=== PATIENT | male | born 2000 | race Caucasian/White ===

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

== ENCOUNTER 2022-01-16 10:15 | Emergency (ER) | payer MEDICAID, SELFPAY ==
[2022-01-16 10:32] VITALS: BP 114/57; PULSE 78; RESP 16; TEMP 36.7; O2SAT 98
[2022-01-16 10:37] VITALS: RESP 20
--- NOTE | 2022-01-16 10:41 | ED.GENADUL_ITS ---
Discharge Plan Disposition Patient Disposition: HOME Condition: Improving Discharge Details Clinical Impression: Exudative pharyngitis Primary Care Provider: Umu Baca ED Provider: Fuad Amin Home Meds and New Rx's Prescriptions: New penicillin V potassium 500 mg tablet 500 mg PO TID 9 Days Qty: 27 0RF Continued escitalopram oxalate [Lexapro] 20 mg tablet 20 mg PO HS Qty: 30 2RF Discharge Instructions Instructions: Pharyngitis (ED) Additional Instructions: Small, frequent sips of fluids and/or popsicles to maintain good hydration. Tylenol and/or ibuprofen as needed for pain. Take antibiotics as prescribed. Return to ER for any acute concerns. Stand Alone Forms: Work Release Medical Decision Making This is a 21-year-old male with 3 days of sore throat and minimal other symptoms. His exam is consistent with exudative pharyngitis. He had a negative COVID test at home. We will place him on a course of penicillin. He understands home care and return precautions for reevaluation. HPI General Mode of arrival: ambulatory . Date/Time Provider Initiated Documentation: 01/16/22 10:17 . Limitations to Documentation: no limitations . Information obtained by: patient . History of Present Illness 21 year old M presents to the emergency department with the chief complaint of Sore throat, described as moderate, Quality is described as dull and constant, and is localized to the face and mouth. Patient reports no radiation. Patient started experiencing this hour(s) and it has been constant. No relieving factors improve symptom(s), No exacerbating factors reported . Patient notes other (Sinus); denies cough, fever/chills, headaches and loss of appetite. Patient did receive the following treatments prior to arrival, none Related Data Home Medications Medication Instructions Recorded Confirmed escitalopram oxalate 20 mg tablet 20 mg PO HS #30 tabs 22 01/16/22 (Lexapro) penicillin V potassium 500 mg 500 mg PO TID 9 days #27 tabs 01/16/22 tablet Previous Rx's Medication Instructions Recorded escitalopram oxalate 20 mg tablet 20 mg PO HS #30 tabs 11/15/21 (Lexapro) penicillin V potassium 500 mg 500 mg PO TID 9 days #27 tabs 01/16/22 tablet Allergies Allergy/AdvReac Type Severity Reaction Status Date / Time No Known Drug Allergies Allergy Verified 01/16/22 10:36 General Stated Complaint: GenMedical MADHAVI: 4 Review of Systems Narrative: Bloody tinged yellow sinus drainage, minimal dry cough, no significant fever, no known sick contacts. Denies change in taste or smell. 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 Suicidal ideation Without specific timing or plan as of spring 2020- suicidal ideation improving over the remainder of the year with suicidal ideation being less intense and frequent Surgical History History of abdominal surgery (~04/04/21) patent urachal repair Tooth extraction had caps done under anesthesia Family History Mother Psoriasis Seizures Father Healthy adult Other Alcohol abuse MGF- recovered 26 years Essential hypertension MGM, MGF Personal history of malignant neoplasm MGGM-breast, MGGF-pituitary/adrenal Heart disease MGF Hyperlipidemia MGGM Mental disorder M great uncle Myocardial infarction MGF Social History Smoking/Tobacco Use Status: Never Second Hand Exposure: Yes Smoking risk assessment performed?: Yes Alcohol Intake: current Alcohol Intake frequency: a few times a month Drug use: Occasionally Substance use type: marijuana Details: Couple x a week but use is decreasing over time Adopted: No Foster care: No Household members: other Details: Recently moved into apartment with two friends in [place] Number of Children: 0 Education Level: high school 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 Pleasant, well groomed, interactive. HEAD: Normocephalic, atraumatic ENT: Mucous membranes moist, oropharynx erythematous tonsillar pillars with white exudate. No asymmetry or swelling, tympanic membranes clear bilaterally, External ear exam unremarkable EYES: PERRL, EOMI NECK: Full ROM, no SONA, no menigismus CHEST/RESP: Nontender, clear to auscultation bilateral, no wheeze/rhonchi/rales CARDIOVASCULAR: RRR, no murmur, rub vasyl. 2+ Rad pulse bilateral ABDOMEN: Soft, nontender, no mass. +Bowel sounds EXT: Full ROM, no edema, no rash Neuro: Grossly normal neurologic exam, conversant, interactive. Psych: Speech fluent, thoughts congruent, affect normal Course Vital Signs Vital signs: Vital Signs Temperature 36.7 C 01/16/22 10:32 Pulse 78 01/16/22 10:32 Respiratory Rate 16 01/16/22 10:32 Blood Pressure 114/57 L 01/16/22 10:32 Pulse Oximetry 98 01/16/22 10:32 Temperature 36.7 C 01/16/22 10:32 Temperature Source Temporal Artery Scan 01/16/22 10:32 Pulse 78 01/16/22 10:32 Respiratory Rate 20 01/16/22 10:37 Respiratory Effort 01/16/22 10:37 Respiratory Depth Normal 01/16/22 10:37 Respiratory Pattern Normal 01/16/22 10:37 Blood Pressure 114/57 L 01/16/22 10:32 Blood Pressure Position Sitting 01/16/22 10:32 Pulse Oximetry 98 01/16/22 10:32 Oxygen Delivery Method Room Air 01/16/22 10:32 Oxygen Flow Rate 0 01/16/22 10:32 Pain Level 6 01/16/22 10:32
[2022-01-16] MEDS: Penicillin V POTASSIUM 500 MG TAB, 4 TABS/BTL PO (11:02)
== END 2022-01-16 11:03 | disposition home or self-care (01) ==
PROVIDERS: Emergency Provider Emergency Medicine
DX: J02.9 Acute pharyngitis, unspecified (principal)
CPT/HCPCS: 99283

== ENCOUNTER 2022-05-13 06:16 | Emergency (ER) | payer MEDICAID, SELFPAY ==
[2022-05-13 06:23] VITALS: BP 133/64; PULSE 113; RESP 24; TEMP 36.6; O2SAT 95
--- NOTE | 2022-05-13 06:51 | ED.GENADUL_ITS ---
Discharge Plan Disposition Patient Disposition: HOME Condition: Stable Discharge Details Clinical Impression: Exudative pharyngitis Primary Care Provider: Unknown,Unknown ED Provider: Janice Mortensen Home Meds and New Rx's Prescriptions: Continued escitalopram oxalate [Lexapro] 20 mg tablet 20 mg PO HS Qty: 30 2RF Discharge Instructions Instructions: Pharyngitis (ED) Additional Instructions: Your rapid strep test today is negative. Your symptoms could be secondary to another type of strep throat or mononucleosis which is a viral throat infection. You were given an antibiotic injection today for treatment of another possible type of strep throat. A throat culture has been ordered and will take several days to obtain a result. A blood test was drawn today to test for mononucleosis and you will be notified if the result is positive. Drink plenty of fluids and get plenty of rest. Alternate tylenol and motrin as needed and directed for pain. Follow-up with your primary care doctor in 1 week. Return to the emergency department with any worsening or new concerning symptoms. Stand Alone Forms: Work Release Discharge Data Discharge Date/Time-TO BE ENTERED AT DEPARTURE: 05/13/22 07:41 Discharge Physician: Janice Mortensen Medical Decision Making 22-year-old male presents with sore throat for the past 2 days. Also admits to fatigue and generalized malaise. Heart rate tachycardic to the 110s. He is afebrile and able to speak in full sentences. He has observable pain with swallowing. He has posterior pharyngeal erythema, edema with tonsillar exudates. There is no significant lymphadenopathy, drooling, trismus or submandibular swelling. Rapid strep negative. Discussed with patient that differential diagnosis includes another form of strep pharyngitis including strep B strep C strep G or mononucleosis. We will give a dose of Motrin and Decadron, obtain mono screening. Throat culture sent. Patient offered prescription for antibiotics for possible strep versus Bicillin injection. Patient would rather have the injection. Advised to increase fluids, rest, alternate Tylenol and Motrin. Advised to follow up with the primary care doctor for re-evaluation. Usual and customary return precautions given prior to discharge. Medical Records Medical records reviewed: Yes I reviewed the patient's medical records. HPI General Mode of arrival: ambulatory . Date/Time Provider Initiated Documentation: 05/13/22 06:19 . Limitations to Documentation: no limitations . Information obtained by: patient . HPI Narrative: Patient is a 22-year-old male presents with sore throat for the past 2 days. Patient states he has pain with swallowing. He denies any known fever, nasal congestion, ear pain, cough or difficulty breathing. He states he has had strep throat in the past and states this feels similar. He also admits to fatigue and generalized malaise. Related Data Home Medications Medication Instructions Recorded Confirmed escitalopram oxalate 20 mg tablet 20 mg PO HS #30 tabs 02/23/22 (Lexapro) Previous Rx's Medication Instructions Recorded escitalopram oxalate 20 mg tablet 20 mg PO HS #30 tabs 02/23/22 (Lexapro) Allergies Allergy/AdvReac Type Severity Reaction Status Date / Time No Known Drug Allergies Allergy Verified 01/16/22 10:36 General Stated Complaint: Sorethroat MADHAVI: 3 Review of Systems All systems reviewed & are unremarkable except as noted in HPI and below Constitutional Constitutional: Reports as per HPI, Denies chills, Reports fatigue, Denies fever(s) and Reports malaise Eyes Eyes: Denies blurry vision ENT Ears, Nose, Mouth, and Throat: Denies dizziness, Reports sore throat and Denies throat swelling Cardiovascular Cardiovascular: Denies chest pain and Denies dyspnea Respiratory Respiratory: Denies cough and Denies dyspnea Gastrointestinal Gastrointestinal: Denies abdominal pain, Denies diarrhea and Denies vomiting Genitourinary Genitourinary: Denies hematuria and Denies dysuria Musculoskeletal Musculoskeletal: Denies back pain and Denies numbness Integumentary/Breasts Skin/Breast: Denies lesions and Denies rash Neurologic Neurologic: Denies dizziness, Denies localized weakness and Denies numbness Endocrine Endocrine: Reports fatigue Allergic/Immunologic Allergic/Immunologic: Denies throat swelling [facility] All Active Problems (Updated 05/13/22 @ 07:10 by Janice Mortensen DO) Exudative pharyngitis (Acute) Depression (Chronic) Lexapro 20 mg as of 12/12/20; has counseling services with Demi at [facility] and only intermittently takes his Lexapro (10/23/21) Substance use (Chronic) Ongoing use of THC; charged with a DUI over 2020- was placed in diversion program; 6 months of suspended license and fines ; denies use of alcohol since that time Medical History 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 Suicidal ideation Without specific timing or plan as of spring 2020- suicidal ideation improving over the remainder of the year with suicidal ideation being less intense and frequent Surgical History History of abdominal surgery (~04/04/21) patent urachal repair Tooth extraction had caps done under anesthesia Family History Mother Psoriasis Seizures Father Healthy adult Other Alcohol abuse MGF- recovered 26 years Essential hypertension MGM, MGF Personal history of malignant neoplasm MGGM-breast, MGGF-pituitary/adrenal Heart disease MGF Hyperlipidemia MGGM Mental disorder M great uncle Myocardial infarction MGF Social History Smoking/Tobacco Use Status: Never Second Hand Exposure: Yes Smoking risk assessment performed?: Yes Alcohol Intake: current Alcohol Intake frequency: a few times a month Drug use: Occasionally Substance use type: marijuana Details: Couple x a week but use is decreasing over time Adopted: No Foster care: No Household members: other Details: Recently moved into apartment with two friends in [place] Number of Children: 0 Education Level: high school 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 Exam Const General: cooperative, healthy appearing and no acute distress Orientation: alert, awake and oriented x3 HENMT Head: normal to inspection Ears: hearing grossly normal bilaterally, external ears normal and TM's normal bilaterally Mouth: oral mucosae normal, no drooling and no trismus Teeth and gingiva: dentition normal Throat: no peritonsillar masses and posterior oropharynx abnormal edema, erythema and exudates Eyes General: appearance normal, both eyes and all related structures Neck Neck: normal visual inspection, no lymphadenopathy, no meningeal signs, trachea midline, supple, no anterior neck swelling and No submandibular swelling Resp Effort & Inspection: normal respiratory effort and able to speak in complete sentences Auscultation: clear to auscultation bilaterally Cardio Rate: regular rate Rhythm: regular rhythm GI Palpation: soft, not firm, no guarding, no masses, not rigid and nontender Skin General skin exam: no rashes or lesions noted Neuro General: patient alert, patient awake and patient oriented x3 Motor: muscle tone normal throughout Extrem General: normal to inspection and full ROM Psych Appearance: grossly normal Affect: normal affect Course Vital Signs Vital signs: Vital Signs Temperature 97.8 F 05/13/22 06:23 Pulse 113 H 05/13/22 06:23 Respiratory Rate 24 05/13/22 06:23 Blood Pressure 133/64 05/13/22 06:23 Pulse Oximetry 95 05/13/22 06:23 Temperature 97.8 F 05/13/22 06:23 Temperature Source Oral 05/13/22 06:23 Pulse 113 H 05/13/22 06:23 Respiratory Rate 24 05/13/22 06:23 Respiratory Effort Non-Labored 05/13/22 06:27 Blood Pressure 133/64 05/13/22 06:23 Pulse Oximetry 95 05/13/22 06:23 Pain Level 6 05/13/22 06:23 Lab/Test Results Lab/Test Results: POC Strep Test-JUAN ANTONIO(Rapid) Start: 05/13/22 06:27 Freq: .Rapid Strep Test Status: Active Protocol: Document 05/13/22 06:50 NAOMIE (Rec: 05/13/22 06:50 NAOMIE [id number]) Strep test-JUAN ANTONIO(Rapid)-POC POC-Strep test-JUAN ANTONIO (Rapid) Negative POC-Strep test-JUAN ANTONIO (Rapid) Negative
[2022-05-13] MEDS: Dexamethasone 10 MG/ML VIAL PO (07:12)
[2022-05-13] MEDS: Ibuprofen 600 MG TAB PO (07:12)
[2022-05-13 07:40] VITALS: BP 133/64; PULSE 113; RESP 24; TEMP 36.6; O2SAT 95
[2022-05-13 08:10] LABS: Mono Screening Negative (Negative)
== END 2022-05-13 07:41 | disposition home or self-care (01) ==
PROVIDERS: Emergency Provider Physician Assistant
DX: J02.9 Acute pharyngitis, unspecified (principal); R53.83 Other fatigue; R53.81 Other malaise; R00.0 Tachycardia, unspecified; Z77.22 Contact with and (suspected) exposure to environmental tobacco smoke (acute) (chronic)
CPT/HCPCS: 87880; 96372; 99284; 86308; 87081; J0561; J1100

== ENCOUNTER 2022-05-16 15:15 | Emergency (ER) | payer MEDICAID, SELFPAY ==
[2022-05-16 15:25] VITALS: BP 133/71; PULSE 98; RESP 18; TEMP 37; O2SAT 97
--- NOTE | 2022-05-16 16:55 | W.ED.GENAD ---
Discharge Plan Disposition Patient Disposition: HOME Condition: Stable Discharge Details Clinical Impression: URI (upper respiratory infection) Primary Care Provider: Unknown,Unknown ED Provider: Sravan Tam Home Meds and New Rx's Prescriptions: New prednisone 20 mg tablet 40 mg PO DAILY Qty: 8 0RF Continued escitalopram oxalate [Lexapro] 20 mg tablet 20 mg PO HS Qty: 30 2RF Discharge Instructions Instructions: Upper Respiratory Infection (ED) Additional Instructions: Please stay well-hydrated and continue to take [id number] medication as it matches symptoms. For this evening you may take ibuprofen and then start your prednisone first thing tomorrow morning and take as prescribed. If you develop any new or significant worsening of symptoms feel free to return the emergency department for reassessment otherwise follow-up with your primary care provider for recheck if you are not improving in the next week. Referrals: Primary Care Provider [Outside] - 1 week Discharge Data Discharge Date/Time-TO BE ENTERED AT DEPARTURE: 05/16/22 17:08 Medical Decision Making Patient presenting to the emergency department for chief complaint of continued sore throat and now having nasal congestion and cough. Patient does state he felt better after the steroids he received during his emergency department visit a couple days ago but now has continued symptoms. Exam consistent with URI with tonsillar erythema, and audible nasal congestion otherwise unremarkable benign exam.. 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 Pt non toxic and stable. Patient was previously negative for strep and strep culture was negative, patient was also negative for mono. Patient denies any COVID testing so we will perform send out COVID testing. Patient already received Bicillin so I do not feel that antibiotics are needed. Patient offered repeat dose of Decadron versus daily prednisone. After discussion of risk versus benefit of each patient stated preference for prednisone. This was prescribed to patient and discussed with patient return and follow-up precautions. After discussion of diagnosis and plan of care patient has no further needs, questions, or concerns and states clear understanding to return to the emergency department for any worsening symptoms. This documentation was generated using [employer] system, please disregard any oddities of phrase or misspellings. HPI General Mode of arrival: ambulatory. Date/Time Provider Initiated Documentation: 05/16/22 15:26. Limitations to Documentation: no limitations. Information obtained by: patient, RN notes reviewed and old records reviewed. History of Present Illness 22 year old M presents to the emergency department with the chief complaint of Sore throat, nasal congestion, cough, described as moderate, with intensity rated at 6. Quality is described as aching, and is localized to the face and mouth. Patient reports no radiation. Patient started experiencing this day(s) (4) and it has been constant. Medication improves symptom(s), (Steroids helped) No exacerbating factors reported . Patient notes cough; denies fever/chills. Patient did receive the following treatments prior to arrival, none Related Data Home Medications Medication Instructions Recorded Confirmed escitalopram oxalate 20 mg tablet 20 mg PO HS #30 tabs 02/23/22 05/16/22 (Lexapro) prednisone 20 mg tablet 40 mg PO DAILY #8 tabs 05/16/22 Previous Rx's Medication Instructions Recorded escitalopram oxalate 20 mg tablet 20 mg PO HS #30 tabs 02/23/22 (Lexapro) prednisone 20 mg tablet 40 mg PO DAILY #8 tabs 05/16/22 Allergies Allergy/AdvReac Type Severity Reaction Status Date / Time No Known Drug Allergies Allergy Verified 05/16/22 15:36 General Stated Complaint: GenMedical MADHAVI: 4 Review of Systems Constitutional Constitutional: Reports chills, Reports fever(s), Denies headache(s) and Reports malaise ENT Ears, Nose, Mouth, and Throat: Denies change in voice, Denies dysphagia, Denies otalgia, Denies headache(s), Denies hoarseness, Denies lip swelling, Denies mouth lesions, Reports nasal congestion, Reports odynophagia, Reports sinus pressure, Reports sore throat, Denies throat swelling and Denies tongue swelling Cardiovascular Cardiovascular: Denies chest pain Respiratory Respiratory: Denies chest congestion and Reports cough Gastrointestinal Gastrointestinal: Denies dysphagia and Reports odynophagia Integumentary/Breasts Skin/Breast: Denies rash Neurologic Neurologic: Denies headache(s) Allergic/Immunologic Allergic/Immunologic: Denies lip swelling, Denies throat swelling and Denies tongue swelling PFSH All Active Problems Exudative pharyngitis (Acute) URI (upper respiratory infection) (Acute) Depression (Chronic) Lexapro 20 mg as of 12/12/20; has counseling services with Demi at [facility]- no counseling and only intermittently takes his Lexapro (10/23/21) Substance use (Chronic) Ongoing use of THC; charged with a DUI over 2020- was placed in diversion program; 6 months of suspended license and fines ; denies use of alcohol since that time Medical History 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 Suicidal ideation Without specific timing or plan as of spring 2020- suicidal ideation improving over the remainder of the year with suicidal ideation being less intense and frequent Surgical History History of abdominal surgery (~04/04/21) patent urachal repair Tooth extraction had caps done under anesthesia Family History Mother Psoriasis Seizures Father Healthy adult Other Alcohol abuse MGF- recovered 26 years Essential hypertension MGM, MGF Personal history of malignant neoplasm MGGM-breast, MGGF-pituitary/adrenal Heart disease MGF Hyperlipidemia MGGM Mental disorder M great uncle Myocardial infarction MGF Social History Smoking/Tobacco Use Status: Current every day Tobacco Type: cigarettes Second Hand Exposure: Yes Smoking risk assessment performed?: Yes Alcohol Intake: current Alcohol Intake frequency: a few times a month Drug use: Occasionally Substance use type: marijuana Details: Couple x a week but use is decreasing over time Adopted: No Foster care: No Household members: other Details: Recently moved into apartment with two friends in [place] Number of Children: 0 Education Level: high school 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 Exam Const General: cooperative, healthy appearing, comfortable, no acute distress and not ill appearing Orientation: alert, awake and oriented x3 HENMT Head: normal to inspection and normocephalic Ears: hearing grossly normal bilaterally, external ears normal, TM's normal bilaterally and mastoids normal General nose exam: external nose normal and nares normal Face and sinus: normal facial exam Mouth: oral mucosae normal, lip normal, tongue normal, no audible dysphonia, no drooling and no trismus Throat: uvula midline, abnormal tonsil bilaterally erythema; no exudates and no hypertrophy and no peritonsillar masses Neck Neck: normal visual inspection, full ROM, no lymphadenopathy and no meningeal signs Resp Effort & Inspection: normal respiratory effort, able to speak in complete sentences and no stridor Auscultation: clear to auscultation bilaterally Cardio Rate: regular rate Rhythm: regular rhythm Heart Sounds: S1 normal and S2 normal Skin General skin exam: no rashes or lesions noted Course Vital Signs Vital signs: Vital Signs Temperature 37.0 C 05/16/22 15:25 Pulse 98 H 05/16/22 15:25 Respiratory Rate 18 05/16/22 15:25 Blood Pressure 133/71 05/16/22 15:25 Pulse Oximetry 97 05/16/22 15:25 Temperature 37.0 C 05/16/22 15:25 Temperature Source Oral 05/16/22 15:25 Pulse 98 H 05/16/22 15:25 Respiratory Rate 18 05/16/22 15:25 Respiratory Effort Non-Labored 05/16/22 15:35 Blood Pressure 133/71 05/16/22 15:25 Blood Pressure Position Sitting 05/16/22 15:25 Pulse Oximetry 97 05/16/22 15:25 Oxygen Delivery Method Room Air 05/16/22 15:25 Oxygen Flow Rate 0 05/16/22 15:25 Pain Level 6 05/16/22 15:25 Lab/Test Results Lab/Test Results: 05/16/22 15:45 Pharynx Group A Streptococcus Culture - Pending POC Strep Test-JUAN ANTONIO(Rapid) Start: 05/16/22 15:38 Freq: .Rapid Strep Test Status: Active Protocol: Document 05/16/22 15:41 CB (Rec: 05/16/22 15:42 [id number]) Strep test-JUAN ANTONIO(Rapid)-POC POC-Strep test-JUAN ANTONIO (Rapid) Negative POC-Strep test-JUAN ANTONIO (Rapid) Negative
[2022-05-18 11:11] LABS: COVID-19 RT-PCR UVMMC Result Negative (Negative)
--- NOTE | 2022-05-22 10:16 | NUR.NOTE ---
Nursing Note: Patient's work note found this morning in ED. Not sure if patient still needs it. Tried calling but does not have a voice mailbox yet. Note was mailed to patient.
== END 2022-05-16 17:08 | disposition home or self-care (01) ==
PROVIDERS: Emergency Provider Nurse Practitioner Family
DX: J06.9 Acute upper respiratory infection, unspecified (principal); F17.210 Nicotine dependence, cigarettes, uncomplicated; Z20.822 Contact with and (suspected) exposure to COVID-19
CPT/HCPCS: 87880; 99282; U0003; 87081

== ENCOUNTER 2023-12-03 06:29 | Emergency (ER) | payer OTHER, SELFPAY ==
[2023-12-03 06:33] VITALS: BP 154/83; PULSE 85; RESP 16; TEMP 37.2; O2SAT 99
--- NOTE | 2023-12-03 06:40 | ED.GENADUL_ITS ---
Discharge Plan Disposition Patient Disposition: Home Condition: Good Discharge Details Clinical Impression: Contusion of foot, left Primary Care Provider: Unknown,Unknown ED Provider: Nithin Mejia Home Meds and New Rx's Prescriptions: No Action escitalopram oxalate [Lexapro] 20 mg tablet 20 mg PO HS Qty: 30 2RF Discharge Instructions Instructions: Foot Contusion (ED) Additional Instructions: Please use the walking boot for the next 2 to 3 weeks if the pain persists. Please use the crutches to help keep weight off of the foot for the next 1 to 2 weeks as that is healing. Please take Tylenol and Motrin as needed for pain. If you notice any worsening of your symptoms, or any new symptoms such as vomiting, diarrhea, fever, chills, shortness of breath, chest pain, numbness, weakness, or fainting , please return immediately to the emergency department for reevaluation. Please follow up with your primary care provider as soon as possible for reassessment and reevaluation. As always, it was a pleasure participating in your medical care today. Stand Alone Forms: Work Release Discharge Data Discharge Date/Time-TO BE ENTERED AT DEPARTURE: 12/03/23 07:23 HPI General Date/Time Provider Initiated Documentation: 12/03/23 06:34 . HPI Narrative: This is a pleasant 23-year-old male with no significant past medical history who presents today for pain in his left foot. He states that yesterday he was working at [employer] when a pallet of bricks weighing about 1700 pounds rolled off onto his left foot. He had pain at that time. He did take some NSAID therapy then and this slightly improved his symptoms. Pain is notably made worse with weightbearing. He denies numbness or tingling. He denies any other complaints or other injuries. Related Data Home Medications Medication Instructions Recorded Confirmed escitalopram oxalate 20 mg tablet 20 mg PO HS #30 tabs 02/23/22 12/03/23 (Lexapro) Previous Rx's Medication Instructions Recorded escitalopram oxalate 20 mg tablet 20 mg PO HS #30 tabs 02/23/22 (Lexapro) Allergies Allergy/AdvReac Type Severity Reaction Status Date / Time No Known Drug Allergies Allergy none Verified 12/03/23 06:37 General Stated Complaint: Orthopedic MADHAVI: 4 Review of Systems All systems reviewed & are unremarkable except as noted in HPI and below Exam Narrative Exam Narrative: 1.Const: Well-nourished, Well-developed, appearing stated age 2.Eyes: PERRL, no conjunctival injection, and symmetrical lids. 3.ENT: Atraumatic external nose and ears. Moist MM. Neck: Symmetric, trachea midline, No thyromegaly. 4.CVS: +S1/S2, No murmurs or gallops. Peripheral pulses 2+ and equal in all extremities. Brisk capillary refill in all extremities. 5.RESP: Unlabored respiratory effort. Clear to auscultation bilaterally. No wheezes rales or rhonchi 6.GI: Soft, Nontender/Nondistended, No hepatosplenomegaly. No guarding or rebound. 7.MSK: Patient's left foot demonstrates mild swelling and tenderness over the second third and fourth digits. There appears to be mild avulsion of the nails. Mild bruising. Sensation is otherwise intact. Dorsalis pedis and posterior tibial pulse +2 bilaterally. Brisk capillary refill for all toes. Patient is able to flex and extend but does have some mild pain. Mild tenderness at the MTP joints of the affected toes. No evidence of subungual hematomas. Great toe demonstrates no swelling tenderness or bruising. 8.Skin: Warm, Dry. No rashes or lesions. 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 Sensation grossly intact, no focal neurologic deficits. 10.Psych: (AAO) x3. Appropriate mood and affect Course Vital Signs Vital signs: Vital Signs Temperature 37.2 C 12/03/23 06:33 Pulse 85 12/03/23 06:33 Respiratory Rate 16 12/03/23 06:33 Blood Pressure 154/83 H 12/03/23 06:33 Pulse Oximetry 99 12/03/23 06:33 Temperature 37.2 C 12/03/23 06:33 Temperature Source Skin 12/03/23 06:33 Pulse 85 12/03/23 06:33 Respiratory Rate 16 12/03/23 06:33 Respiratory Effort Normal, Non-Labored 12/03/23 06:38 Blood Pressure 154/83 H 12/03/23 06:33 Blood Pressure Position Sitting 12/03/23 06:33 Pulse Oximetry 99 12/03/23 06:33 Oxygen Delivery Method Room Air 04/23/24 06:33 Oxygen Flow Rate 0 04/23/24 06:33 Pain Level 5 12/03/23 06:33 Medical Decision Making This is a pleasant 23-year-old male with no significant past medical history who presents today for pain in his left foot. He states that yesterday he was working at [employer] when a pallet of bricks weighing about 1700 pounds rolled off onto his left foot. He had pain at that time. He did take some NSAID therapy then and this slightly improved his symptoms. Pain is notably made worse with weightbearing. He denies numbness or tingling. He denies any other complaints or other injuries. Exam demonstrates well-appearing male, swelling and tenderness over the MTP joints of the second through fourth digits on the left foot. Mild avulsion of the nails. Mild bruising. Pain with flexion and palpation. Will get x-ray to rule out fracture. Will monitor closely and reassess. X-rays returned negative for fracture. Will give walking boot and crutches as well as work note for home use. Discussed red flags for which to return. Diagnosis contusion of foot. I have extensively reviewed the treatment plan and discharge instructions with the patient. I have addressed all patient concerns at this time. The patient was made aware of what symptoms to monitor for that would warrant a return to the emergency department. Discussed the plan with the patient, they demonstrate verbal understanding and agreement with our assessment and plan at this time. The documentation in this chart was dictated using [employer] dictation software. Please excuse any dictation errors. FINDINGS: Bones/joints: No acute fractures are identified. Alignment is anatomic. Joint spaces are maintained. Soft tissues: Mild dorsal soft tissue swelling in the forefoot. IMPRESSION: No fracture or malalignment in the left foot. Thank you for allowing us to participate in the care of your patient. Dictated and Authenticated by: Jessica Plaza MD 12/03/2023 9:14 AM Eastern Time ([place] & [place] Quality:SDOH Health Related Social Needs: No Data to Display PFSH All Active Problems (Updated 12/03/23 @ 07:05 by Nithin Mejia DO) Contusion of foot, left (Acute) Depression (Chronic) Lexapro 20 mg as of 12/12/20; has counseling services with [facility]- no counseling and only intermittently takes his Lexapro (3/14/22) Substance use (Chronic) Ongoing use of THC; charged with a DUI over 2020- was placed in diversion program; 6 months of suspended license and fines ; denies use of alcohol since that time Medical History Suicidal ideation Without specific timing or plan as of spring 2020- suicidal ideation improving over the remainder of the year with suicidal ideation being less intense and frequent 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 Surgical History History of abdominal surgery (~04/04/21) patent urachal repair Tooth extraction had caps done under anesthesia Family History Mother Psoriasis Seizures Father Healthy adult Other Alcohol abuse MGF- recovered 26 years Essential hypertension MGM, MGF Personal history of malignant neoplasm MGGM-breast, MGGF-pituitary/adrenal Heart disease MGF Hyperlipidemia MGGM Mental disorder M great uncle Myocardial infarction MGF Social History Smoking/Tobacco Use Status: Former Tobacco Use Quit Date: 01/10/23 Second Hand Exposure: Yes Smoking risk assessment performed?: Yes Alcohol Intake: current Alcohol Intake frequency: a few times a month Drug use: Occasionally Substance use type: marijuana Details: Couple x a week but use is decreasing over time Adopted: No Foster care: No Household members: other Details: Recently moved into apartment with two friends in [place] Housing: apartment Number of Children: 0 Education Level: high school 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
[2023-12-03] MEDS: Acetaminophen 500 MG TAB 1000 MG PO (06:41)
[2023-12-03] MEDS: Ibuprofen 800 MG TAB PO (06:41)
--- NOTE | 2023-12-03 07:01 | DI.RAD_ITS ---
Exam(s) XR FOOT LT COMPLETE EXAM: XR FOOT LT COMPLETE CLINICAL HISTORY: 1700 onto foot, pain at 2-4 MTP's. TECHNIQUE: 2D digital imaging was performed. COMPARISON: No exams were available for comparison FINDINGS: 3 views No evidence of fracture or diastasis of the Lisfranc joint. Bone density normal. No osseous lesions nor erosions. No radiopaque foreign bodies. IMPRESSION: No acute osseous findings. DATA REPOSITORY: RADIATION DOSE DELIVERED:
--- NOTE | 2023-12-03 09:14 | DI.VRAD_ITS ---
PROCEDURE INFORMATION: Exam: XR Left Foot Exam date and time: 12/03/2023 6:54 AM Age: 23 years old Clinical indication: Other: 1700lbs dropped onto foot, pain at 2-4 mtp's; Additional info: Work related injury. TECHNIQUE: Imaging protocol: Radiologic exam of the left foot. Views: 3 or more views. COMPARISON: No relevant prior studies available. FINDINGS: Bones/joints: No acute fractures are identified. Alignment is anatomic. Joint spaces are maintained. Soft tissues: Mild dorsal soft tissue swelling in the forefoot. IMPRESSION: No fracture or malalignment in the left foot. Dictated and Authenticated by: Jessica Plaza MD. Ordering:ZULEMA Weller MD
== END 2023-12-03 07:23 | disposition home or self-care (01) ==
LOC: ER 07:17
PROVIDERS: Emergency Provider Student in an Organized Health Care Education/Training Program
DX: S90.32XA Contusion of left foot, initial encounter (principal); Z87.891 Personal history of nicotine dependence; W22.8XXA Striking against or struck by other objects, initial encounter; Y93.H3 Activity, building and construction; Y92.512 Supermarket, store or market as the place of occurrence of the external cause; Y99.0 Civilian activity done for income or pay
CPT/HCPCS: 99283; 73630

== ENCOUNTER 2024-02-25 16:45 | Outpatient (REF) | payer OTHER, SELFPAY ==
[2024-02-26 20:01] LABS: HIV-1/2 Ag & Ab Screen Negative (Negative)
[2024-02-26 20:07] LABS: Hepatitis C Ab w Rflx HCV PCR Negative (Negative)
[2024-02-27 12:24] LABS: Syphilis Serology (RPR) Negative (Negative)
[2024-02-27 13:02] LABS: GC Result Negative (Negative)
[2024-02-27 14:33] LABS: Chlamydia Result Positive (Negative)
[2024-02-28 13:15] LABS: HSV Type 1 Ab, IgG Negative (Negative); HSV Type 2 Ab, IgG Negative (Negative)
== END 2024-02-25 16:46 | disposition home or self-care (01) ==
LOC: LBN 16:45
PROVIDERS: Visit Provider Nurse Practitioner Family
DX: Z20.2 Contact with and (suspected) exposure to infections with a predominantly sexual mode of transmission (principal)
CPT/HCPCS: 86803; 87389; 87491; 87591; 86592; 86695; 86696